=== PATIENT | male | born 1965 ===

== ENCOUNTER 2025-07-08 10:57 | Day surgery (SDC) | payer OTHER, SELFPAY ==
[2025-06-29 09:20] LABS: Hematocrit 38.1 % (39.0-52.0); Hemoglobin 12.5 g/dL (13.0-18.0); Mean Corp Hgb Conc. 32.8 g/dL (33.0-37.0); Mean Corpuscular Volume 93.4 fL (80.0-94.0); Platelet Count 190 10^3/uL (130-400); Red Cell Dist. Width 13.2 % (11.5-14.5)
[2025-06-29 09:30] LABS: INR 1.65; PT 19.8 Sec (11.4-14.6)
[2025-06-29 09:31] LABS: APTT 67.6 Sec (23.4-35.0)
[2025-06-29 09:36] LABS: ALT (SGPT) 21 U/L (0-50); AST (SGOT) 27 U/L (17-59); Albumin 4.4 g/dl (3.5-5.0); Alkaline Phosphatase 41 U/L (38-126); Blood Urea Nitrogen 33 mg/dl (9-20); Calcium 9.9 mg/dl (8.4-10.2); Carbon Dioxide 26 mmol/L (22-30); Chloride 105 mmol/L (98-107); Glucose 95 mg/dl (70-99); Potassium 5.6 mmol/L (3.5-5.1); Sodium 140 mmol/L (135-145); Total Protein 6.9 g/dl (6.3-8.2); eGFR > 60.00
--- NOTE | 2025-06-29 10:50 | PTCARENOTE ---
Patients 06/29- potassium- 5.6, INR- 1.65, PTT- 67.6- Jacinda @ Dr. Villalobos office notified
[2025-06-29 14:07] VITALS: BMI 25.2
--- NOTE | 2025-06-29 15:29 | PTCARENOTE ---
Dr Aggarwal made aware of K 5.6, no further action required.
[2025-07-08] VITALS (10 sets, daily range): BP systolic 142–159; BP diastolic 82–99; BMI 25.2
[2025-07-08] MEDS: TYLENOL 1000 MG PO (11:09)
[2025-07-08] MEDS: NORMOSOL-R/PLASMALYTE-A 1000 IV (11:11)
--- NOTE | 2025-07-08 11:34 | W.SUR.PREOP ---
Pre-Operative Surgical Note
-
I have examined this patient prior to the performance of the scheduled procedure.
The patient's condition is unchanged from the time of the current History and
Physical and the patient is able to undergo the scheduled procedure.
--- NOTE | 2025-07-08 11:34 | HP.FOC2 ---
Focused History & Physical
Chief Complaint
HPI:
Chief Complaint: This is a 60-year-old male with multiple symptomatic hernias
HPI / Indication for Planned Procedure: This is a 60-year-old male with symptomatic bilateral inguinal hernias as well as an upper midline incisional hernia and an asymptomatic umbilical hernia. Will plan for a robotic bilateral inguinal hernia
repair with mesh as well as an incisional hernia repair with mesh.
Relevant Past Medical History: Other (Prostate cancer)
Relevant Social History: Negative
Relevant Family History: Negative
Relevant Past Surgical History: Positive for (Robotic prostatectomy)
Review of Systems
Review of Pertinent Systems: All Systems Negative
Medication
See Medication form for detailed medications: Yes
Medication List (including Herbals & OTC):
atorvastatin 10 mg tablet 10 mg PO QPM 06/29/25
carvedilol 25 mg tablet 25 mg PO BID 06/29/25
dabigatran etexilate 150 mg capsule (Pradaxa) 150 mg PO BID 06/29/25
lisinopril 40 mg tablet 40 mg PO DAILY 06/29/25
multivitamin 1 tab PO DAILY 06/29/25
Medications Reviewed: Yes
Allergies and Reactions
Patient has Allergies: Yes
Noted Allergies and Reactions:
Allergy/AdvReac Type Severity Reaction Status Date / Time
bee venom protein (honey bee) Allergy Anaphylaxis Verified 07/08/25 10:56
Pertinent Physical Exam
All Other Systems: Negative
Head/Neck: Normal
Diagnosis / Assessment
This is a 60-year-old male with symptomatic bilateral inguinal hernias as well as an upper midline incisional hernia and an asymptomatic umbilical hernia. Will plan for a robotic bilateral inguinal hernia repair with mesh as well as an incisional
hernia repair with mesh.
Plan / Procedure
This is a 60-year-old male with symptomatic bilateral inguinal hernias as well as an upper midline incisional hernia and an asymptomatic umbilical hernia. Will plan for a robotic bilateral inguinal hernia repair with mesh as well as an incisional
hernia repair with mesh.
Anesthesia/Sedation to be done by Anesthesia Provider: Yes
--- NOTE | 2025-07-08 17:36 | W.IMMPOSTOP ---
Surgical Immed Post Op Note
-
Primary Surgeon: Rolly Freitas MD
Assisting Surgeon: None
Manufacturing Process Engineer: JUSTICE Kimbrough
Pre-op Diagnosis: Bilateral inguinal hernias, ventral incisional hernia
Post-op Diagnosis: Same
Procedure Performed:
1. Robotic bilateral inguinal hernia pair with mesh (TIFFANY approach)
2. Excision of the left spermatic cord lesion
3. Robotic incisional hernia repair with mesh
Anesthesia Type: General
Specimen / Cultures: Left cord lipoma
Estimated Blood Loss: 11 cc
Complications: None
Operative Findings: Bilateral indirect inguinal hernias. Left cord lipoma. Bard 3D max mesh mid weight cut to size. 3.5 cm wide by a 5 cm long incisional hernia covered with a 10 x 15 cm Bard soft uncoated polypropylene mesh placed in the
preperitoneal space.
POST OP PLAN:
Imaging: None
Labs: Routine AM
Diet: Clears tonight, advance to Regular as tolerated
Analgesia: Tylenol 650mg q6 Neftali, Dilaudid 0.5mg q2h PRN
Neuro/vascular checks: Per unit protocol
AC/AP: Hold Therapeutic AC, Ok for DVT PPx
Activity: Ad Valentine
Wound/Incisions/Drains: Routine. Nye out in the morning.
Abx: None
Dispo: RNF, anticipate discharge home tomorrow after drain removal if pain well-controlled.
[2025-07-08] MEDS: DILAUDID 0.5 MG IV ×2 (17:50→20:12)
[2025-07-08] MEDS: DILAUDID 0.25 MG IV (18:10)
--- NOTE | 2025-07-08 19:00 | PTCARENOTE ---
Pt arrived to [address] [place] [address] at 1853 from PACU. Pt AAOx3, vss. surveillance system monitor applied, pt in a fib. Admission assessment complete. Nye draining clear yellow urine. Clears diet tonight, advance to Regular as tolerated. Pt oriented to room, call arechiga
within reach, bed locked and in lowest position. Reviewed plan of care with patient and family at bedside. All questions answered. Care ongoing.
[2025-07-08] MEDS: TYLENOL 650 MG PO (20:11)
[2025-07-08] MEDS: ANESTHETIC LOZENGE 1 LOZENGE PO (21:19)
[2025-07-08] MEDS: DILAUDID 1 MG IV (22:38)
[2025-07-08] MEDS: TYLENOL PO (23:10)
[2025-07-08] MEDS: ROXICODONE 5 MG PO (23:42)
[2025-07-09 03:00] VITALS: BP 140/84
[2025-07-09] MEDS: TYLENOL 650 MG PO ×3 (03:20→12:39)
[2025-07-09] MEDS: DILAUDID 1 MG IV (03:21)
[2025-07-09 06:00] VITALS: BMI 25.2
[2025-07-09] MEDS: ROXICODONE 5 MG PO ×2 (06:16→10:18)
[2025-07-09 07:50] VITALS: BP 146/82
[2025-07-09 08:12] LABS: Hematocrit 37.8 % (39.0-52.0); Hemoglobin 12.2 g/dL (13.0-18.0); Mean Corp Hgb Conc. 32.3 g/dL (33.0-37.0); Mean Corpuscular Volume 93.8 fL (80.0-94.0); Platelet Count 207 10^3/uL (130-400); Red Cell Dist. Width 13.4 % (11.5-14.5)
[2025-07-09 08:46] LABS: Blood Urea Nitrogen 26 mg/dl (9-20); Calcium 9.3 mg/dl (8.4-10.2); Carbon Dioxide 27 mmol/L (22-30); Chloride 102 mmol/L (98-107); Estimated Creatinine Clearance 56 ml/min; Glucose 123 mg/dl (70-99); Potassium 5.0 mmol/L (3.5-5.1); Sodium 138 mmol/L (135-145); eGFR 58.26
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
--- NOTE | 2025-07-09 10:48 | W.PN.GS2 ---
Addendum entered and electronically signed by Abelardo Solo MD 07/09/25 12:47:
I saw and examined the patient.
The CREDIT AND COLLECTIONS REPRESENTATIVE's note was reviewed and I agree with the note.
Comment: No complaints, pain controlled with PO meds, exam pprop, mild expected crepitus to right hemiabdomen, incisions cdi with glue, guevara out DTV, after voiding ready for DC
Original Note:
Today's Communication / Plan
-
Dispo planning
Assessment / Plan
-
60 yo male presenting for management of hernias
POD #1
1. Robotic bilateral inguinal hernia pair with mesh (TIFFANY approach)
2. Excision of the left spermatic cord lesion
3. Robotic incisional hernia repair with mesh
AFVSS
Good pain control thus far
Tolerating diet
Ambulating in hallways
Plan:
Continue regular diet
Doing well with PO analgesics
Dispo planning
Subjective Data
-
Date of Service: July 09, 2025
Pt seen and examined at bedside with Dr. Solo. Denies n/v. Tolerating diet. Ambulating in halls. Pain present, more severe overnight but better this am. Well controlled.
Objective Data
-
Intake and Output
07/08/25 07/09/25 07/10/25
06:59 06:59 06:59
Intake Total 2119 / 2120 360 / 360
Output Total 625 / 625
Balance 1495 / 1495 360 / 360
Intake:
Oral fluids 0 / 1920 360 / 360
IV fluids (Total) 200 / 200
Normosol 200 / 200
Output:
Urine, Guevara 625 / 625
Other:
Number of approximated MODERATE 1
amounts of urine
Vital Signs
Temp Pulse Resp BP Pulse Ox
99.4 F 74 18 146/82 97
07/09/25 07:50 07/09/25 07:50 07/09/25 07:50 07/09/25 07:50 07/09/25 07:50
Lab Results
07/09/25 07:29
07/09/25 07:29
Calcium 9.3 mg/dl (8.4-10.2) 07/09/25 07:29
Total Bilirubin 1.0 mg/dl (0.2-1.3) 06/29/25 06:50
AST 27 U/L (17-59) 06/29/25 06:50
ALT 21 U/L (0-50) 06/29/25 06:50
Alkaline Phosphatase 41 U/L (38-126) 06/29/25 06:50
Total Protein 6.9 g/dl (6.3-8.2) 06/29/25 06:50
Albumin 4.4 g/dl (3.5-5.0) 06/29/25 06:50
Physical Exam
-
NAD
ABD soft, incisional tenderness, nd
Incisions with intact glue, minimal crepitus to left abdominal wall
Mild edema to groin
[2025-07-09 11:00] VITALS: BP 150/85
--- NOTE | 2025-07-15 08:14 | OR.RPT ---
Addendum entered and electronically signed by Rolly Freitas MD 07/15/25 08:31:
Date of operation should read: '07/08/2025'
Original Note:
Operative Report
Operative Report
Patient Name: Dionte Hoff
: 1965
Date of Operation: 07/15/2025
Preoperative Diagnosis: Bilateral inguinal hernias, ventral incisional hernia
Postoperative Diagnosis: Same
Procedure(s):
1. Robotic Inguinal Hernia Repair with mesh, bilateral (TIFFANY approach)
2. Excision of lesion of a spermatic cord lipoma (47071�59)
3. Robotic incisional hernia repair with mesh (TIFFANY approach)
Surgeon(s):
Dr. Freitas
Dragline Operator(s):
JUSTICE Kimbrough
Anesthesia: General
Estimated Blood Loss: 11 cc
Urine Output: None
Drains/Lines/Implants: Large 3D Max Bard mid weight uncoated polypropylene mesh x 2, 10 x 15 cm Bard soft uncoated polypropylene mesh was placed in the midline preperitoneal space.
Specimens: Left cord lipoma
Indication for surgery: This is a 60-year-old male with a history of robotic prostatectomy for cancer with bilateral lymphadenectomy and upper midline extraction site complicated by an incisional hernia there as well as bilateral inguinal hernias
with the right more symptomatic than the left who presented to my office for evaluation. After thorough discussion of risk benefits and alternatives the patient consented to a minimally invasive repair with possible open/hybrid component pending
intraoperative findings.
Operative Findings: Bilateral indirect inguinal hernias. Left cord lipoma. Bard 3D max mesh mid weight cut to size. 3.5 cm wide by a 5 cm long incisional hernia covered with a 10 x 15 cm Bard soft uncoated polypropylene mesh placed in the
preperitoneal space.
Details of the operation:
The patient was brought to the Operating Room and placed in the supine position with the arms tucked. IV antibiotics were infused and Venodyne stockings placed. Following uneventful induction of general endotracheal anesthesia, an orogastric tube
was placed. The abdomen was prepped and draped in the usual sterile fashion. The abdomen was entered using a Veress technique which required 1 pass, pneumoperitoneum to 15 mmHg was obtained without difficulty. An 8mm trochar was passed through the
abdominal wall roughly 20 cm cephalad to the inguinal canal in the left upper quadrant. We then confirmed that no inadvertent injury was made while passing the trocar or Veress needle. We then placed two additional 8 mm ports in the left upper
quadrant as well as in the midline through the visualized hernia defect. We then docked the robot with a Prograsper in the left hand port and monopolar scissors in the right. Bilateral inguinal hernias were identified. We then began by creating a
flap at the level of the ASIS laterally working our way medially to the medial umbilical fold and then following it onto the contralateral side taking down the entire flap. Staying onto the peritoneum we were able to circumferentially dissect
around the hernia sac and and peel it off of the underlying spermatic cord and testicular vessels, taking care to preserve them. Medially we identified the midline pubis as well as Robinson's ligament and ensured to dissect 2 cm below the pubic rim
over the bladder. The area between the bladder and the iliac vessels could not be completely exposed as there was a significant amount of scar tissue in this area and we did not want to risk injury to either the bladder or iliac vessels.
Therefore, 'critical view of the MPO' was not achieved bilaterally however we were able to clearly expose the femoral, direct and indirect spaces bilaterally. Bilateral indirect inguinal defects were identified. There was a cord lipoma on the left
side that was reduced and resected. There was no direct or femoral components on either side. We then fixated 2 large Bard 3D max uncoated polypropylene mid weight meshes to Robinson's medially, in the midline and superior laterally. A upside down V
notch was created in the meshes bilaterally so that it would not bend over the area between the bladder and iliac vessels. These pieces of mesh were removed immediately. After assuring hemostasis the flap was closed and evacuated of air using an
Angiocath. This allowed us to confirm that the mesh laid flat.
We then turned our attention to the incisional midline hernia. The robot was undocked and 2 additional 8 mm ports were placed in the left lower quadrant and the robot was redocked from the lateral side. The preperitoneal space was entered and a
flap was created all the way to the hernia site which measured roughly 3.5 cm wide by 5 cm long. The previous port that had been inserted through this opening was excised and the skin was closed with a perforating towel clamp after fully developing
our flap such that we were able to get our 'volcano sign'. We then worked on reducing the defect which contained preperitoneal fat and continued our dissection out laterally for an additional 6 to 7 cm. Once our flap was created we introduced a
ruler and a 0 V-Loc 180. The pocket measured 10 x 15 cm. I had my assistant professor of surgery cut a 10 x 15 cm piece of Bard soft mesh marked with 0 Vicryl suture at the center, as I closed the umbilical defect. The mesh was then sutured to the posterior rectus
sheath in 4 quadrants with 2-0 vircyls to ensure good apposition. A 2-0 Monocryl was introduced which was used to close our flap. All sutures were removed. The robot was undocked. The ports were removed under direct visualization and
pneumoperitoneum was evacuated. The port sites were closed with 4-0 Monocryl followed by Dermabond. Counts were correct and overall, the patient tolerated the procedure well and was taken to the Recovery Room postoperatively in stable condition.
I was the attending physician and performed the procedure with assistance of the PA above. The assistance of JUSTICE Kimbrough was required due to the complexity of the procedure. During the procedure Sowmya assisted with port placement, instrument
and needle exchanges, and closure of the wound. I was present for all portions of the case, excluding skin closure.
Rolly Freitas MD
== END 2025-07-09 13:42 | disposition home or self-care (01) ==
LOC: SDS 10:57
PROVIDERS: ATTENDING PHYSICIAN Surgery; FAMILY PHYSICIAN Family Medicine
DX: K43.2 Incisional hernia without obstruction or gangrene (principal); K40.20 Bilateral inguinal hernia, without obstruction or gangrene, not specified as recurrent; D17.6 Benign lipomatous neoplasm of spermatic cord
CPT/HCPCS: 49593; 49650; 36415; 80048; 80053; 85027; 85610; 85730; 86850; 86900; 86901; 88304; C1781